=== PATIENT | male | born 1985 | race American Indian/Alaskan Native ===

== ENCOUNTER 2017-01-02 07:33 | Emergency (ER) | payer BC ==
[2017-01-02 07:44] VITALS: BP 130/75
[2017-01-02] MEDS ORDERED: DUONEB 0.5 MG-3 MG/3 ML SOLN IH ONE (08:51)
[2017-01-02] MEDS ORDERED: MOTRIN PO ONE (08:51)
[2017-01-02] MEDS ORDERED: TESSALON PERLES PO ONE (08:51)
--- NOTE | 2017-01-02 09:46 | Emergency Department Report ---
ED General Adult HPI - General Chief complaint: Upper Respiratory Infection Stated complaint: FLU-LIKE SYMPTOMS Time Seen by Provider: 01/02/17 08:42 Source: patient Mode of arrival: Ambulatory Limitations: No Limitations - History of Present Illness Initial comments: PT c/o c/c/c since Saturday. PT states that he was sent home from work yesterday and today. PT reports that his coughing and sneezing have improved but he is still fatigued. PT states that today while at work he had 2 episodes of post tussive emesis. PT does admit to smoking 3-4 black and mild's a day Complaint: cough Onset/Timin -: Gradual, days(s) Location: head, chest Radiation: non-radiation Severity scale (0 -10): 5 Consistency: constant Improves with: medication (Dayquil ) Worsens with: other (working ) Associated Symptoms: cough, fever/chills (resolved ), malaise - Related Data Previous Rx's Medication Instructions Recorded Last Taken Type ALBUTEROL NEB's [Proventil 0.083% 2.5 mg IH QID PRN #25 neb 01/02/17 Unknown Rx NEBS] Benzonatate [Tessalon Perles] 100 mg PO Q8HR PRN #12 capsule 01/02/17 Unknown Rx Promethazine Dm [Phenergan Dm 5 ml PO Q6H PRN #60 ml 01/02/17 Unknown Rx 6.25/15 mg 5 ml] Allergies Allergy/AdvReac Type Severity Reaction Status Date / Time No Known Allergies Allergy Unverified 01/02/17 07:40 ED Review of Systems ROS: Stated complaint: FLU-LIKE SYMPTOMS Other details as noted in HPI ENT: throat pain (resolved ), congestion Respiratory: cough, wheezing Gastrointestinal: vomiting (after coughing ) ED Past Medical Hx - Past Medical History Previous Medical History?: No - Surgical History Past Surgical History?: No - Social History Smoking Status: Light Tobacco Smoker Substance Use Type: Alcohol - Medications Home Medications: Home Medications Medication Instructions Recorded Confirmed Last Taken Type ALBUTEROL NEB's [Proventil 0.083% 2.5 mg IH QID PRN #25 neb 01/02/17 Unknown Rx NEBS] Benzonatate [Tessalon Perles] 100 mg PO Q8HR PRN #12 capsule 01/02/17 Unknown Rx Promethazine Dm [Phenergan Dm 5 ml PO Q6H PRN #60 ml 01/02/17 Unknown Rx 6.25/15 mg 5 ml] ED Physical Exam - General Limitations: No Limitations General appearance: alert, in no apparent distress - Head Head exam: Present: atraumatic, normocephalic - Eye Eye exam: Present: normal appearance. Absent: conjunctival injection - ENT ENT exam: Present: normal exam, normal orophraynx, mucous membranes moist, normal external ear exam - Neck Neck exam: Present: normal inspection. Absent: tenderness, meningismus - Respiratory Respiratory exam: Present: wheezes (LLL with exp wheeze ). Absent: rhonchi, chest wall tenderness, accessory muscle use, decreased breath sounds - Cardiovascular Cardiovascular Exam: Present: regular rate, normal rhythm, normal heart sounds - GI/Abdominal GI/Abdominal exam: Present: soft. Absent: tenderness - Extremities Exam Extremities exam: Present: normal inspection - Back Exam Back exam: Present: normal inspection, full ROM. Absent: CVA tenderness (R), CVA tenderness (L) - Neurological Exam Neurological exam: Present: alert, oriented X3 - Psychiatric Psychiatric exam: Present: normal affect, normal mood - Skin Skin exam: Present: warm, dry, intact ED Course Vital Signs 01/02/17 01/02/17 01/02/17 07:41 08:56 08:59 Temperature 98.3 F Pulse Rate 75 Pulse Rate [ 962 H Bilateral] Respiratory 17 16 Rate Respiratory 16 Rate [Bilateral ] Blood Pressure 130/75 O2 Sat by Pulse 98 Oximetry 01/02/17 09:07 Temperature Pulse Rate Pulse Rate [ 92 H Bilateral] Respiratory Rate Respiratory 16 Rate [Bilateral ] Blood Pressure O2 Sat by Pulse Oximetry - Reevaluation(s) Reevaluation #1: 01/02/17 10:57 Pt received neb while in ED. PT's lungs cta. pt reports decrease in cough. PT aware of xr result and plan of care. Pt not ready for smoking cessation at this time. - Pulse Oximetry Interpretation Digit-Finger Initial Pulse Oximetry Readin Actions Taken: none ED Medical Decision Making - Radiology Data Radiology results: report reviewed CXR- NAP - Differential Diagnosis viral uri, bronchitis, pna Critical care attestation.: If time is entered above; I have spent that time in minutes in the direct care of this critically ill patient, excluding procedure time. ED Disposition Clinical Impression: Post-tussive emesis, Cough Disposition: DISCHARGED TO HOME OR SELFCARE Is pt being admited?: No Does the pt Need Aspirin: No Condition: Stable Instructions: How to Stop Smoking (ED), Upper Respiratory Infection (ED), Acute Bronchitis (ED), Acute Cough (ED) Additional Instructions: No driving or ETOH after taking Phenergan cough syrup Referrals: PRIMARY MD KELLY [Primary Care Provider] - 3-5 Days HAILE FLOOD MD [Staff Physician] - 3-5 Days [facility] [Outside] - 3-5 Days Forms: Work/School Release Form(ED) Time of Disposition: 11:01
--- NOTE | 2017-01-02 10:48 | XRay Report ---
Chest 2 views: History: Cough and wheezing. Findings: Normal cardiomediastinal silhouette. Trachea is midline. No consolidation, pneumothorax or pleural effusion. Impression: No acute cardiopulmonary findings.
== END 2017-01-02 11:18 | disposition home or self-care (01) ==
LOC: ED 07:33
DX: R11.10 Vomiting, unspecified (principal); R05 Cough; R06.7 Sneezing; R53.81 Other malaise; F17.200 Nicotine dependence, unspecified, uncomplicated; Z79.899 Other long term (current) drug therapy
CPT/HCPCS: 71020; 94640

== ENCOUNTER 2017-05-17 07:36 | Emergency (ER) | payer SELFPAY ==
[2017-05-17 08:46] LABS: Bilirubin,Urine NEG (Negative); Blood,Urine LG (Negative); Ketones,Urine NEG (Negative); Leukocyte Esterase,Urine SM (Negative); Mucus,Urine FEW /HPF; Nitrite,Urine NEG (Negative); Protein,Urine <15 mg/dL mg/dL (Negative); Urobilinogen,Urine < 2.0 mg/dL (<2.0)
[2017-05-17] MEDS ORDERED: TORADOL IM ONE (10:18)
--- NOTE | 2017-05-17 10:24 | Emergency Department Report ---
ED Abdominal Pain HPI - General Chief Complaint: Urogenital-Male Stated Complaint: ABD PAIN/SWELLING/GENITAL AREA Time Seen by Provider: 05/17/17 10:10 Source: patient Mode of arrival: Ambulatory Limitations: No Limitations - History of Present Illness Initial Comments: PT c/o pelvic pain x 2 days. PT states this morning he woke up and he had swelling to the left side of his penis. PT states he is sexual active but only has one partner who is symptom free. PT denies flank pain but states he had bad back pain 1 month ago that resolved on it's own. PT reports having surgery on his urinary tract when he was a baby but he does not know details MD Complaint: abdominal pain Onset/Timin -: Gradual Location: suprapubic Radiation: none Migration to: other (penis ) Severity: severe Severity scale (0 -10): 7 Quality: sharp Consistency: constant Improves With: nothing Worsens With: nothing Associated Symptoms: denies: nausea, vomiting, diarrhea, fever, chills, dysuria - Related Data Previous Rx's Medication Instructions Recorded Last Taken Type Ibuprofen [Motrin] 600 mg PO Q8H PRN #15 tablet 05/17/17 Unknown Rx Nystatin Cream [Mycostatin Cream] 1 applic TP TID 7 Days 05/17/17 Unknown Rx Sulfamethoxazole/Trimethoprim 1 each PO BID #14 tablet 05/17/17 Unknown Rx [Bactrim DS TAB] Allergies Allergy/AdvReac Type Severity Reaction Status Date / Time No Known Allergies Allergy Unverified 05/17/17 08:05 ED Review of Systems ROS: Stated complaint: ABD PAIN/SWELLING/GENITAL AREA Other details as noted in HPI Comment: All other systems reviewed and negative Constitutional: denies: chills, fever Gastrointestinal: abdominal pain. denies: nausea, vomiting Genitourinary: other (swelling to penis). denies: testicular pain, testicular mass Musculoskeletal: denies: back pain Skin: denies: rash, lesions, change in color ED Past Medical Hx - Past Medical History Previous Medical History?: Yes Hx GERD: Yes - Social History Smoking Status: Current Every Day Smoker Substance Use Type: Alcohol - Medications Home Medications: Home Medications Medication Instructions Recorded Confirmed Last Taken Type Ibuprofen [Motrin] 600 mg PO Q8H PRN #15 tablet 05/17/17 Unknown Rx Nystatin Cream [Mycostatin Cream] 1 applic TP TID 7 Days 05/17/17 Unknown Rx Sulfamethoxazole/Trimethoprim 1 each PO BID #14 tablet 05/17/17 Unknown Rx [Bactrim DS TAB] ED Physical Exam - General Limitations: No Limitations General appearance: alert, in no apparent distress, obese - Head Head exam: Present: atraumatic, normocephalic, normal inspection - Eye Eye exam: Present: normal appearance, scleral icterus. Absent: conjunctival injection - ENT ENT exam: Present: normal exam, normal external ear exam - Neck Neck exam: Present: normal inspection, tenderness, full ROM - Respiratory Respiratory exam: Present: normal lung sounds bilaterally. Absent: respiratory distress, wheezes, chest wall tenderness, accessory muscle use - Cardiovascular Cardiovascular Exam: Present: regular rate, normal rhythm, normal heart sounds - GI/Abdominal GI/Abdominal exam: Present: soft, hypoactive bowel sounds. Absent: tenderness, guarding, rebound - exam: Absent: testicular tenderness, urethral discharge, scrotal swelling External exam: Present: swelling (urinary meatus appears enlarged. opening under prepuce, two skin growths noted to L side of shaft, penile swelling noted ), other (palpable R inguinal lympth nodes, not ttp ) - Extremities Exam Extremities exam: Present: normal inspection, full ROM - Back Exam Back exam: Present: normal inspection, full ROM. Absent: tenderness, CVA tenderness (R), CVA tenderness (L) - Neurological Exam Neurological exam: Present: alert, oriented X3 - Psychiatric Psychiatric exam: Present: normal affect, normal mood - Skin Skin exam: Present: warm, dry, intact, normal color ED Course Vital Signs 05/17/17 05/17/17 08:00 10:39 Temperature 98.1 F Pulse Rate 65 Respiratory 16 18 Rate Blood Pressure 153/88 O2 Sat by Pulse 100 Oximetry - Reevaluation(s) Reevaluation #1: 05/17/17 10:35 PT aware of plan of care. PT has no questions at this time. Reevaluation #2: 05/17/17 14:48 PT reports pain relief after Toradol. PT aware of lab and CT results. PT has no questions at this time. - Pulse Oximetry Interpretation Digit-Finger Initial Pulse Oximetry Readin Actions Taken: none ED Medical Decision Making - Lab Data Result diagrams: 05/17/17 10:27 05/17/17 10:27 Lab Results 05/17/17 05/17/17 05/17/17 Range/Units 10:27 10:27 Unknown WBC 5.0 (4.5-11.0) K/mm3 RBC 4.97 (3.65-5.03) M/mm3 Hgb 16.2 H (11.8-15.2) gm/dl Hct 47.0 H (35.5-45.6) % MCV 95 H (84-94) fl MCH 33 H (28-32) pg MCHC 34 (32-34) % RDW 14.7 (13.2-15.2) % Plt Count 242 (140-440) K/mm3 Lymph % (Auto) 40.2 H (13.4-35.0) % [place] % (Auto) 11.0 H (0.0-7.3) % Eos % (Auto) 2.3 (0.0-4.3) % Baso % (Auto) 1.0 (0.0-1.8) % Lymph # 2.0 (1.2-5.4) K/mm3 [place] # 0.6 (0.0-0.8) K/mm3 Eos # 0.1 (0.0-0.4) K/mm3 Baso # 0.1 (0.0-0.1) K/mm3 Seg Neutrophils % 45.5 (40.0-70.0) % Seg Neutrophils # 2.3 (1.8-7.7) K/mm3 Sodium 139 (137-145) mmol/L Potassium 3.7 (3.6-5.0) mmol/L Chloride 103.5 (98-107) mmol/L Carbon Dioxide 24 (22-30) mmol/L Anion Gap 15 mmol/L BUN 19 (9-20) mg/dL Creatinine 0.9 (0.8-1.5) mg/dL Estimated GFR > 60 ml/min BUN/Creatinine Ratio 21.11 % Glucose 97 (75-100) mg/dL Calcium 8.8 (8.4-10.2) mg/dL Total Bilirubin 0.40 (0.1-1.2) mg/dL AST 26 (5-40) units/L ALT 23 (7-56) units/L Alkaline Phosphatase 54 (35-129) units/L Total Protein 7.2 (6.3-8.2) g/dL Albumin 4.4 (3.9-5) g/dL Albumin/Globulin Ratio 1.6 % Urine Color Yellow (Yellow) Urine Turbidity Clear (Clear) Urine pH 6.0 (5.0-7.0) Ur Specific [place] 1.026 (1.003-1.030) Urine Protein <15 mg/dl (Negative) mg/dL Urine Glucose (UA) Neg (Negative) mg/dL Urine Ketones Neg (Negative) mg/dL Urine Blood Lg (Negative) Urine Nitrite Neg (Negative) Urine Bilirubin Neg (Negative) Urine Urobilinogen < 2.0 (<2.0) mg/dL Ur Leukocyte Esterase Sm (Negative) Urine WBC (Auto) 16.0 H (0.0-6.0) /HPF Urine RBC (Auto) 78.0 (0.0-6.0) /HPF U Epithel Cells (Auto) 1.0 (0-13.0) /HPF Urine Mucus Few /HPF - Radiology Data Radiology results: report reviewed CT abd/ pelvis - tiny non obstructing calculus in R and L kidney - Differential Diagnosis uti, std, balanitis Critical Care Time: No Critical care attestation.: If time is entered above; I have spent that time in minutes in the direct care of this critically ill patient, excluding procedure time. ED Disposition Clinical Impression: Balanitis, Kidney stones Hematuria Qualifiers: Hematuria type: unspecified type Qualified Code(s): R31.9 - Hematuria, unspecified Disposition: DC- TO HOME OR SELFCARE Is pt being admited?: No Does the pt Need Aspirin: No Condition: Stable Instructions: Kidney Stones (ED), Acute Hematuria (ED), Balanitis (ED) Additional Instructions: Follow up with PCP in 3-5 days Return to ED if worsening or concerns Recheck your bp on follow up With your history of urinary surgery, you may need to follow up with an urologist Prescriptions: Ibuprofen [Motrin] 600 mg PO Q8H PRN #15 tablet PRN Reason: Pain Nystatin Cream [Mycostatin Cream] 1 applic TP TID 7 Days Sulfamethoxazole/Trimethoprim [Bactrim DS TAB] 1 each PO BID #14 tablet Referrals: PRIMARY CAREMD [Primary Care Provider] - 3-5 Days MARVA CORREA MD [Staff Physician] - 3-5 Days [facility] [Outside] - 3-5 Days [facility] [Outside] - 3-5 Days Forms: Work/School Release Form(ED) Time of Disposition: 14:43
[2017-05-17 10:53] LABS: Eosinophils % (Auto) 2.3 % (0.0-4.3); Hemoglobin 16.2 gm/dl (11.8-15.2); Mean Corpuscular HGB Conc 34 % (32-34); Mean Corpuscular Hemoglobin 33 pg (28-32); Mean Corpuscular Volume 95 fl (84-94); Platelet Count 242 K/mm3 (140-440); Red Blood Count 4.97 M/mm3 (3.65-5.03); Red Cell Distribution Width 14.7 % (13.2-15.2)
[2017-05-17 10:57] LABS: Alanine Aminotransferase 23 units/L (7-56); Albumin 4.4 g/dL (3.9-5); Albumin/Globulin Ratio 1.6 %; Alkaline Phosphatase 54 units/L (35-129); Anion Gap 15 mmol/L; BUN/Creatinine Ratio 21.11; Blood Urea Nitrogen 19 mg/dL (9-20); Calcium 8.8 mg/dL (8.4-10.2); Carbon Dioxide 24 mmol/L (22-30); Chloride 103.5 mmol/L (98-107); Glucose 97 mg/dL (75-100); Potassium 3.7 mmol/L (3.6-5.0); Sodium 139 mmol/L (137-145); Total Protein 7.2 g/dL (6.3-8.2)
--- NOTE | 2017-05-17 13:16 | Cat Scan Report ---
CT scan of abdomen and pelvis without IV contrast: History: Pelvic pain, hematuria. Findings: Normal lung bases. No pleural or pericardial effusion. Normal liver spleen pancreas and gallbladder. Normal adrenals. Tiny 1 mm nonobstructing calculus right and left kidney. No hydronephrosis. Normal bladder. No free intraperitoneal fluid or air. No evidence of adenopathy. Gaseous colon with stool in colon. No evidence of appendicitis or diverticula no diverticulitis. Impression: Tiny nonobstructing calculus right and left kidney.
[2017-05-17 15:06] VITALS: BP 148/84
== END 2017-05-17 15:04 | disposition home or self-care (01) ==
LOC: ED 07:36
DX: N48.1 Balanitis (principal); N20.0 Calculus of kidney; R31.9 Hematuria, unspecified; K21.9 Gastro-esophageal reflux disease without esophagitis; F17.200 Nicotine dependence, unspecified, uncomplicated
CPT/HCPCS: 36415; 74176; 80053; 81001; 85025; 87086; 96372; 99284; J1885

== ENCOUNTER 2017-05-27 13:46 | Emergency (ER) | payer SELFPAY | END 2017-05-27 14:00 | disposition left against medical advice (07) | LOC: ED 13:46 | DX: R31.9 Hematuria, unspecified (principal); Z53.21 Procedure and treatment not carried out due to patient leaving prior to being seen by health care provider ==